=== PATIENT | male | born 1980 | race African-American/Black ===

== ENCOUNTER 2021-09-23 16:11 | Emergency (ER) | payer MEDICAID, OTHER ==
[~2021-09-23] VITALS: Ht 177.8 cm; Wt 93.0 kg
[~2021-09-23 16:11] MED LIST: ALBUTEROL; TRAM50TA94 PO; [UNRECOGNIZED DRUG - OTHER]
[2021-09-23] MEDS ORDERED: LORAZEPAM 2MG/ML CPJ IV ONE (16:30)
[2021-09-23] MEDS ORDERED: SODIUM CHLORIDE 0.9% 1,000 ML IV ONE (16:30)
[2021-09-23 17:14] LABS: BASOPHILS % 0.5 % (0.0-2.0); EOSINOPHILS % 0.5 % (0.0-5.0); HEMATOCRIT. 39.7 % (42.0-52.0); HEMOGLOBIN. 13.1 g/dL (14.0-18.0); LYMPHOCYTES % 34.6 % (20.0-50.0); MEAN CORPUSCULAR HEMOGLOBIN 23.8 pg (28.0-32.0); MEAN CORPUSCULAR VOLUME 72.2 fL (80.0-94.0); MEAN PLATELET VOLUME 7.8 fl (7.4-10.4); MONOCYTES % 7.7 % (2.0-8.0); NEUTROPHILS % 56.7 % (40.0-76.0); PLATELET 297 x1000/uL (130-400); RED CELL DISTRIBUTION WIDTH 14.5 % (11.6-14.6)
[2021-09-23 17:15] LABS: CHLORIDE 109 mEq/L (98-107)
[2021-09-23 22:57] VITALS: BP 138/75
== END 2021-09-23 23:13 | disposition home or self-care (01) ==
LOC: ER 16:11
DX: R00.2 Palpitations (principal); R06.02 Shortness of breath; F12.10 Cannabis abuse, uncomplicated; J45.909 Unspecified asthma, uncomplicated
CPT/HCPCS: 36415; 71045; 80053; 84484; 85025; 93005; 96361; 96374; 99285; J2060; J7030

== ENCOUNTER 2022-04-24 20:16 | Emergency (ER) | payer MEDICAID ==
[~2022-04-24] VITALS: Ht 177.8 cm; Wt 82.0 kg
[2022-04-24 20:26] VITALS: BP 144/88
== END 2022-04-25 | disposition left against medical advice (07) ==
LOC: ER 20:16
DX: Z53.21 Procedure and treatment not carried out due to patient leaving prior to being seen by health care provider (principal)
CPT/HCPCS: 93005

== ENCOUNTER 2022-05-14 14:18 | Emergency (ER) | payer MEDICAID ==
[~2022-05-14] VITALS: Ht 177.8 cm; Wt 86.0 kg
[2022-05-14 16:44] VITALS: BP 136/71
[2022-05-14 18:51] LABS: BASOPHILS % 0.5 % (0.0-2.0); EOSINOPHILS % 2.2 % (0.0-5.0); HEMATOCRIT. 43.6 % (42.0-52.0); HEMOGLOBIN. 14.4 g/dL (14.0-18.0); LYMPHOCYTES % 40.9 % (20.0-50.0); MEAN CORPUSCULAR VOLUME 72.8 fL (80.0-94.0); MEAN PLATELET VOLUME 7.6 fl (7.4-10.4); MONOCYTES % 9.8 % (2.0-8.0); NEUTROPHILS % 46.6 % (40.0-76.0); PLATELET 301 x1000/uL (130-400); RED BLOOD CELL COUNT 5.99 mill/uL (4.7-6.1); RED CELL DISTRIBUTION WIDTH 15.1 % (11.6-14.6)
[2022-05-14 18:54] LABS: CHLORIDE 107 mEq/L (98-107)
[2022-05-14] MEDS ORDERED: SODIUM CHLORIDE 0.9% 1,000 ML IV ONE (19:45)
[2022-05-14 21:58] LABS: CLARITY URINE CLEAR (CLEAR); COLOR URINE YELLOW (YELLOW); KETONES URINE NEGATIVE (NEGATIVE); LEUKOCYTE ESTERASE URINE TRACE (NEGATIVE); NITRITE URINE NEGATIVE (NEGATIVE); OCCULT BLOOD URINE NEGATIVE (NEGATIVE); PROTEIN URINE NEGATIVE (NEGATIVE); SPECIFIC GRAVITY URINE 1.017 (1.005-1.030); UROBILINOGEN URINE 0.2 E.U./dL (0.2-1.0)
[2022-05-14 23:01] LABS: CHLORIDE 110 mEq/L (98-107)
[2022-05-14 23:08] LABS: CREATINE KINASE 129 IU/L (39-308); ETHANOL BLOOD < 10 mg/dL
== END 2022-05-15 00:44 | disposition left against medical advice (07) ==
LOC: ER 14:18
DX: R10.84 Generalized abdominal pain (principal); R07.9 Chest pain, unspecified; R00.0 Tachycardia, unspecified; R03.0 Elevated blood-pressure reading, without diagnosis of hypertension; F12.90 Cannabis use, unspecified, uncomplicated
CPT/HCPCS: 36415; 80048; 80053; 80307; 80320; 80329; 81003; 82140; 82550; 83690; 84484; 85025; 93005; 96360; 99284; J7030; G0480

== ENCOUNTER 2022-10-24 06:18 | Emergency (ER) | payer MEDICAID ==
[~2022-10-24] VITALS: Ht 170.2 cm; Wt 87.0 kg
[2022-10-24 06:19] VITALS: BP 132/84
== END 2022-10-24 10:05 | disposition left against medical advice (07) ==
LOC: ER 06:36
DX: T40.711A Poisoning by cannabis, accidental (unintentional), initial encounter (principal); R00.2 Palpitations; J45.909 Unspecified asthma, uncomplicated; Y92.89 Other specified places as the place of occurrence of the external cause
CPT/HCPCS: 93005; 99283

== ENCOUNTER 2022-11-08 13:55 | Emergency (ER) | payer MEDICAID ==
[~2022-11-08] VITALS: Ht 172.7 cm; Wt 73.0 kg
[2022-11-08 14:05] VITALS: BP 140/85
[2022-11-08] MEDS ORDERED: IBUPROFEN 600MG TABLET PO ONE (14:15)
== END 2022-11-08 16:00 | disposition left against medical advice (07) ==
LOC: ER 13:55
DX: M79.641 Pain in right hand (principal); J45.909 Unspecified asthma, uncomplicated; Z53.21 Procedure and treatment not carried out due to patient leaving prior to being seen by health care provider; Z86.59 Personal history of other mental and behavioral disorders; Y04.0XXA Assault by unarmed brawl or fight, initial encounter; Y93.89 Activity, other specified; Y92.89 Other specified places as the place of occurrence of the external cause; Y99.8 Other external cause status
CPT/HCPCS: 99283

== ENCOUNTER 2023-01-16 13:07 | Emergency (ER) | payer MEDICAID ==
[2023-01-16 13:56] VITALS: PULSE 104
== END 2023-01-16 14:36 | disposition left against medical advice (07) ==
LOC: ER 13:53
DX: Z53.21 Procedure and treatment not carried out due to patient leaving prior to being seen by health care provider (principal)

== ENCOUNTER 2023-04-19 04:58 | Emergency (ER) | payer MEDICAID ==
[~2023-04-19] VITALS: Ht 175.3 cm; Wt 83.0 kg
[2023-04-19 05:00] VITALS: BP 136/84; PULSE 90; RESP 16; TEMP 97.7; O2SAT 98
[2023-04-19] MEDS ORDERED: MORPHINE SULFATE 4 MG/ML CPJ (NOT FOR IM USE) IV STA (05:09)
[2023-04-19] MEDS ORDERED: ONDANSETRON HCL 4MG/2ML INJ IV STA (05:09)
[2023-04-19] MEDS ORDERED: FAMOTIDINE 20MG/2ML VIAL IV STA (05:09)
[2023-04-19] MEDS ORDERED: SODIUM CHLORIDE 0.9% 1,000 ML IV ONE (05:15)
[2023-04-19 05:47] LABS: BASOPHILS % 0.4 % (0.0-2.0); DIFFERENTIAL COMMENT 0; EOSINOPHILS % 2.1 % (0.0-5.0); HEMATOCRIT. 36.7 % (42.0-52.0); MEAN CORPUSCULAR HEMOGLOBIN 24.2 pg (28.0-32.0); MEAN CORPUSCULAR HGB CONC 32.8 g/dL (31.0-37.0); MEAN CORPUSCULAR VOLUME 73.7 fL (80.0-94.0); MONOCYTES % 14.6 % (2.0-8.0); NEUTROPHILS % 46.9 % (40.0-76.0); PLATELET 220 x1000/uL (130-400); RED BLOOD CELL COUNT 4.98 mill/uL (4.7-6.1); RED CELL DISTRIBUTION WIDTH 14.4 % (11.6-14.6); WHITE BLOOD COUNT 7.4 x1000/uL (4.5-11.0)
[2023-04-19 05:50] LABS: PROTHROMBIN TIME 10.4 sec (9.6-11.0)
[2023-04-19 05:51] LABS: CHLORIDE 104 mEq/L (98-107); INDEX HEMOLYSI 1 (1-3); INDEX ICTERIC 1 (1-4); INDEX LIPEMIC 1 (1-3); SODIUM 138 mEq/L (136-145)
[2023-04-19 06:02] LABS: ALANINE AMINOTRANSFERASE 30 IU/L (13-61); ALBUMIN 3.3 g/dL (3.4-5.0); ASPARTATE AMINOTRANSFERASE 35 IU/L (15-37); BILIRUBIN TOTAL 0.6 mg/dL (0.1-1.0); CARBON DIOXIDE 29 mEq/L (21-32); CREATININE 1.1 mg/dL (0.6-1.3); GLUCOSE 106 mg/dL (70-105); PROTEIN TOTAL 7.5 g/dL (6.0-8.3); TROPONIN I HIGH SENSITIVITY 6 ng/L (<78); UREA NITROGEN BLOOD 13 mg/dL (7-21)
[2023-04-19] MEDS ORDERED: ONDANSETRON HCL 4MG/2ML INJ IV NR (09:45)
[2023-04-19] MEDS ORDERED: FAMOTIDINE 20MG/2ML VIAL IV NR (09:45)
[2023-04-19] MEDS ORDERED: MORPHINE SULFATE 4 MG/ML CPJ (NOT FOR IM USE) IV NR (09:45)
== END 2023-04-19 10:20 | disposition left against medical advice (07) ==
LOC: ER 04:58 → EDBEDREQTM 08:16 → EDBEDREQ 08:16 → ER 10:20
DX: R10.9 Unspecified abdominal pain (principal); J45.909 Unspecified asthma, uncomplicated; Z86.59 Personal history of other mental and behavioral disorders
CPT/HCPCS: 99283; 80053; 83690; 85025; 85610; 84484; 36415; J7030

== ENCOUNTER 2023-04-19 22:45 | Emergency (ER) | payer MEDICAID ==
[~2023-04-19] VITALS: Ht 170.2 cm; Wt 74.0 kg
[2023-04-19 22:49] VITALS: BP 125/83; PULSE 102; RESP 18; TEMP 98.3; O2SAT 100
[2023-04-19] MEDS ORDERED: KETOROLAC 15MG/ML VIAL IV NR (23:30)
[2023-04-19] MEDS ORDERED: HYDROCODONE/ACETAMINOPHEN 5/325MG TABLET PO ONE (23:30)
== END 2023-04-20 03:30 | disposition home or self-care (01) ==
LOC: ER 22:52
DX: M79.10 Myalgia, unspecified site (principal); J45.909 Unspecified asthma, uncomplicated; F12.10 Cannabis abuse, uncomplicated; V49.49XA Driver injured in collision with other motor vehicles in traffic accident, initial encounter; Y93.89 Activity, other specified; Y92.89 Other specified places as the place of occurrence of the external cause; Y99.8 Other external cause status
CPT/HCPCS: 99283

== ENCOUNTER 2024-06-19 17:19 | Emergency (ER) | payer MEDICAID, OTHER ==
[~2024-06-19] VITALS: Ht 177.8 cm; Wt 91.0 kg
[2024-06-19 17:19] VITALS: BP 150/90; PULSE 90; RESP 17; TEMP 98; O2SAT 98
[2024-06-19] MEDS ORDERED: ACETAMINOPHEN 325MG TABLET PO NR (17:45)
== END 2024-06-19 23:31 | disposition home or self-care (01) ==
LOC: ER 17:19
DX: M79.601 Pain in right arm (principal); F12.10 Cannabis abuse, uncomplicated
CPT/HCPCS: 73110; 73130; 99284